=== PATIENT | male | born 1960 | race Caucasian/White ===

== ENCOUNTER 2020-01-13 09:47 | Emergency (ER) | payer MEDICAID, SELFPAY ==
[~2020-01-13] VITALS: Ht 170.2 cm; Wt 81.6 kg
[2020-01-13 09:48] VITALS: Ht 170.2 cm; Wt 81.6 kg
[2020-01-13 11:56] LABS: RED CELL DISTRIBUTION WIDTH 12.6 % (11.5-14.5)
[2020-01-13 11:59] LABS: CALCIUM 8.4 mg/dL (8.5-10.1); CARBON DIOXIDE 32.9 mmol/L (21-32); CHLORIDE SERUM 101 mmol/L (98-107); CREATININE SERUM 1.2 mg/dL (0.7-1.3); GFR1 > 60 mL/min; GLUCOSE SERUM 100 mg/dL (74-106); SODIUM SERUM 135 mmol/L (136-145)
[2020-01-13 12:07] LABS: ALKALINE PHOSPHATASE 58 U/L (46-116); ALT/SGPT 59 U/L (16-63); AST/SGOT 66 U/L (15-37); BILIRUBIN TOTAL 0.7 mg/dL (0.20-1.00); C REACTIVE PROTEIN 8.7 mg/dL (<=0.9); LACTIC DEHYDROGENASE (LDH) 309 U/L (100-190)
[2020-01-13 12:08] LABS: PLATELET COUNT 118 x10^3mcL (130-400)
[2020-01-13 12:10] LABS: ALBUMIN 3.1 g/dL (3.4-5.0)
[2020-01-13 13:09] LABS: MONOCYTE 6 % (0-7); SEGMENTED NEUTROPHILS 77 % (37-75)
[2020-01-13 13:10] LABS: rbc morphology (normal/abnorm) NORMAL (NORMAL)
[2020-01-13 14:12] LABS: microscopic required? NO
[2020-01-13 14:15] LABS: urine erythrocyte NEGATIVE (NEGATIVE)
[2020-01-13 15:38] VITALS: BP 111/60
== END 2020-01-13 15:38 | disposition home or self-care (01) ==
LOC: ED 09:47
PROVIDERS: Emergency Medicine
DX: U07.1 COVID-19 (principal); E46 Unspecified protein-calorie malnutrition
CPT/HCPCS: 36600; 83880; 85378; 87804; Q0092; U0003-CS